=== PATIENT | female | born 1965 | race African-American/Black ===

== ENCOUNTER → 2020-01-12 | Outpatient (CLI) | payer OTHER ==
[~2020-01-12] VITALS: Ht 182.9 cm; Wt 103.4 kg
[~2020-01-12] MED LIST: CANASA1000 MG RECTAL; FOLIC ACID1 MG PO; LIPITOR80 MG PO; METFORMIN HCL500 M1 PO; MICARDIS 80 MG80 MG PO; NAPROSYN500 M1 PO; SPIRONOLACT/HCT1 TA1 PO; SULFAZINE500 MG PO; TOPROL XL50 MG PO
[2020-01-12 17:04] LABS: HEMATOCRIT 37.9 % (37.0-47.0); MCHC 34.2 g/dL (28.0-37.0); MCV 87.9 fL (80.0-100.0); MPV 10.2 fl. (7.2-11.1); RBC 4.31 mil/uL (4.20-5.00); RDW-CV 13.7 % (10.5-14.5); WBC 7.5 thou/uL (4.0-11.0)
[2020-01-12 17:11] LABS: INR 1.1; PROTIME 11.1 Seconds (9.20-11.50)
[2020-01-12 17:15] LABS: ALBUMIN 3.7 g/dL (3.4-5.0); CALCIUM 9.6 mg/dL (8.5-10.1); CREATININE 0.7 mg/dL (0.6-1.3); POTASSIUM 3.8 mmol/L (3.5-5.1); TOTAL BILIRUBIN 0.4 mg/dL (<0.1-1.0); TOTAL PROTEIN 8.6 g/dL (6.4-8.2)
[2020-01-12 18:13] LABS: URINE BILIRUBIN NEGATIVE (Negative); URINE BLOOD TRACE (Negative); URINE CLARITY CLEAR; URINE COLOR YELLOW; URINE GLUCOSE-RANDOM NEGATIVE (Negative); URINE KETONES NEGATIVE (Negative); URINE LEUKOCYTES-REFLEX TRACE (Negative); URINE NITRITE-REFLEX NEGATIVE (Negative); URINE PROTEIN NEGATIVE (Negative); URINE UROBILINOGEN 0.2 E.U./dl (0.2-1.0)
[2020-01-12 18:35] LABS: BACTERIA-REFLEX None Seen /HPF (None Seen); SQUAMOUS NONE SEEN /LPF (0-3); URINE RBC None Seen /HPF (0-2); URINE WBC-REFLEX None Seen /HPF (0-5)
[2020-01-12 18:36] LABS: CASTS None Seen /LPF (None Seen); CRYSTALS None Seen /LPF (None Seen)
--- NOTE | 2020-01-13 14:20 | EKG ---
[place] [address] ELECTROCARDIOGRAM REPORT Name: ANYI KENT Room: PRE IN [facility]#: [id number] Admission: Attend Phys: Tristan Fraser Discharge: Date of : 67 Date of Service: 01/12/201710 Report #: [id number] THIS REPORT FOR: //name// [facility] Test Date: 2020-01-12 Test Time: 17:11:34 Pat Name: ANYI KENT Department: Room: Gender: F Community Development Worker: VERNELL : 1965 Requested By: Josue Garza Order Number: [id number] Reading MD: James Lock Measurements Intervals [place] Rate: 70 P: 7 NM: 151 QRS: 42 QRSD: 97 T: 44 QT: 425 QTc: 459 Interpretive Statements Sinus rhythm Ventricular premature complex No previous ECG available for comparison Electronically Signed On 01-13-2020 14:19:32 CDT by James Lock [email or web address] <ELECTRONICALLY SIGNED> By: Alcides Lock MD, [facility] 01/13/20 1419 10 1711 Alcides Lock MD, FACC /EPI
== END ==
LOC: M.PRE → M.LAB 08:00 → M.PRE 01-23 09:11 → EDSTATUS 01-23 15:25 → M.PRE 01-23 17:36
PROVIDERS: Orthopaedic Surgery
DX: Z01.818 Encounter for other preprocedural examination (principal); M17.12 Unilateral primary osteoarthritis, left knee

== ENCOUNTER → 2020-01-12 | Outpatient (CLI) | payer OTHER | LOC: M.MRI 01-10 12:30 | DX: S83.282A Other tear of lateral meniscus, current injury, left knee, initial encounter (principal); S83.242A Other tear of medial meniscus, current injury, left knee, initial encounter; M17.12 Unilateral primary osteoarthritis, left knee; X58.XXXA Exposure to other specified factors, initial encounter; Y93.89 Activity, other specified; Y92.89 Other specified places as the place of occurrence of the external cause; Y99.8 Other external cause status ==

== ENCOUNTER 2020-04-16 06:45 | Inpatient (IN) | payer OTHER ==
[2020-04-11 08:13] LABS: URINE BILIRUBIN NEGATIVE (Negative); URINE BLOOD TRACE (Negative); URINE CLARITY CLEAR; URINE COLOR YELLOW; URINE GLUCOSE-RANDOM NEGATIVE (Negative); URINE KETONES NEGATIVE (Negative); URINE LEUKOCYTES-REFLEX NEGATIVE (Negative); URINE NITRITE-REFLEX NEGATIVE (Negative); URINE PROTEIN NEGATIVE (Negative); URINE SPECIFIC GRAVITY >= 1.030 (1.005-1.030); URINE UROBILINOGEN 0.2 E.U./dl (0.2-1.0)
[2020-04-11 08:17] LABS: INR 1.1; PROTIME 11.2 Seconds (9.20-11.50)
[2020-04-11 08:19] LABS: HEMATOCRIT 37.3 % (37.0-47.0); HEMOGLOBIN 12.6 gm/dL (12.0-15.0); MCH 30.2 pg (26.0-34.0); MCHC 33.7 g/dL (28.0-37.0); MCV 89.7 fL (80.0-100.0); MPV 9.7 fl. (7.2-11.1); RBC 4.16 mil/uL (4.20-5.00); RDW-CV 13.7 % (10.5-14.5); WBC 8.7 thou/uL (4.0-11.0)
[2020-04-11 08:21] LABS: ALBUMIN 3.5 g/dL (3.4-5.0); CALCIUM 8.8 mg/dL (8.5-10.1); POTASSIUM 3.3 mmol/L (3.5-5.1); TOTAL BILIRUBIN 0.3 mg/dL (<0.1-1.0); TOTAL PROTEIN 8.5 g/dL (6.4-8.2)
[~2020-04-16] VITALS: Ht 182.9 cm; Wt 103.4 kg
[2020-04-16] VITALS (7 sets, daily range): BP systolic 118–148; BP diastolic 54–83
[2020-04-16] MEDS ORDERED: PERCOCET 5-3251 EACH PO (15:33)
[2020-04-16] MEDS ORDERED: COLACE100 MG PO (15:33)
[2020-04-16] MEDS ORDERED: XARELTO10 MG PO (15:34)
[2020-04-16] MEDS ORDERED: ASPIRIN325 PO (15:48)
[2020-04-17 03:19] VITALS: BP 147/71
[2020-04-17 04:47] LABS: HEMATOCRIT 32.6 % (37.0-47.0); HEMOGLOBIN 11.1 gm/dL (12.0-15.0); MCH 30.5 pg (26.0-34.0); MCHC 33.9 g/dL (28.0-37.0); MCV 89.9 fL (80.0-100.0); RBC 3.63 mil/uL (4.20-5.00); RDW-CV 14.2 % (10.5-14.5); WBC 6.5 thou/uL (4.0-11.0)
[2020-04-17 05:20] LABS: CALCIUM 8.1 mg/dL (8.5-10.1); CREATININE 0.8 mg/dL (0.6-1.3); MAGNESIUM 1.7 mg/dL (1.8-2.4); POTASSIUM 3.5 mmol/L (3.5-5.1)
[2020-04-17 07:30] VITALS: BP 113/58
[2020-04-17] MEDS ORDERED: XARELTO10 MG PO (09:56)
[2020-04-17 12:02] VITALS: BP 117/59
--- NOTE | 2020-04-17 12:27 | OP ---
[address] [address] OPERATIVE REPORT Name: ANYI KENT Rajeev Room: [address] M.R.#: [id number] Admission: 04/16/20 Attend Phys: Cristela Erickson Discharge: Date of : 67 Report #: [id number] THIS REPORT FOR: //name// cc: PAT Bo family physician/PCP PAT - Betzy family physician/PCP ~ THIS REPORT FOR: //name// CC: PAT physician/PCP Josue Fraser DATE OF SERVICE: 04/16/2020 PREOPERATIVE DIAGNOSIS: Left knee osteoarthritis. POSTOPERATIVE DIAGNOSIS: Left knee osteoarthritis. PROCEDURE: Left total knee arthroplasty. SURGEON: Josue Garza II, DO HEAT TREAT PULLER: MITESH Solis ANESTHESIA: General endotracheal. ESTIMATED BLOOD LOSS: 50 mL. ANTIBIOTICS: Ancef preoperatively. DRAINS: Medium Hemovac. COMPLICATIONS: None. CONDITION OF THE PATIENT: Stable to recovery room. IMPLANTS: Listed in operative record and progress note. BRIEF HISTORY: The patient was seen in the preoperative area. Preoperative H and P was performed. Site was marked, questions were answered. Risks and benefits were discussed with the patient in detail about surgery. The patient wished to proceed, assuming all risks. DESCRIPTION OF PROCEDURE: The patient was taken to the operative suite and placed supine on the operative table, given appropriate anesthesia. A well-padded tourniquet applied to upper thigh, was inflated to 300 mmHg after gravity exsanguination. The operative knee was sterilely prepped and draped. [address] [address] OPERATIVE REPORT Name: ANYI KENT Rajeev Room: [address] M.R.#: [id number] Admission: 04/16/20 Attend Phys: Cristela Erickson Discharge: Date of : 67 Report #: [id number] Surgery began by midline incision. This was carried down to the subcutaneous tissues. A medial parapatellar arthrotomy was performed and carried down to bone. Patella was then everted and excess soft tissues were removed from around the femur. Femoral cutting block was then applied, checked with a drop scar for rotational alignment, pinned in appropriate position and appropriate cuts were made. A 4-in-1 cutting block was then applied, checked for rotational alignment, pinned in appropriate position and appropriate cuts were made. The tibia was exposed. Excess meniscus was removed. Retractor was placed on collateral ligaments. The tibial cutting block was then applied, pinned in appropriate position, checked with drop scar for rotational alignment and slope and appropriate cut was made. Tibial bone was removed. Tibial base plate was then applied, checked for rotational alignment with the drop scar and pinned in appropriate position. The femur was then applied and box cut was reamed. This was then trialed with appropriate spacer, which showed excellent fit and fill and excellent stability of the knee throughout all range of motion. The patella was reamed in appropriate fashion and sized to appropriate size. Three peg holes were drilled and it was then trialed and shown to have excellent flexion and extension, excellent tracking of the patella within the groove. These trials were removed. The tibia was punched in appropriate fashion. Bone ends were cleansed with Pulsavac irrigation and cement was mixed and applied to final implants. These were then malleted into position and held the knee in extension and compressed to allow cement to cure. After it cured, excess was removed using a Walker and osteotome. Wound was then copiously irrigated and the final spacer was then malleted into position. Tourniquet was deflated. Hemostasis was obtained with electrocautery. Pain cocktail was injected. PRP gel sprayed throughout the internal aspects of the knee. Medium Hemovac drain was applied. Capsule was closed with #2 FiberWire and #1 Vicryl in [id number] fashion. Skin was closed with 2-0 Vicryl and running 3-0 Monocryl. Dermabond and sterile dressing applied. Tommy wrap and PolarCare applied. The patient transported to recovery room in stable condition. Counts were correct throughout the procedure. <ELECTRONICALLY SIGNED> By: Josue Garza II, 04/17/20 1227 [id number] Garza II DO /nt
[2020-04-17 16:00] VITALS: BP 136/70
[2020-04-18 03:42] LABS: HEMATOCRIT 31.2 % (37.0-47.0); HEMOGLOBIN 10.5 gm/dL (12.0-15.0)
[2020-04-18 08:00] VITALS: BP 105/60
[2020-04-18 09:04] VITALS: BP 105/60
== END 2020-04-18 13:15 | disposition home health service (06) | DRG 470 ==
LOC: M.ORTHSURG 06:45 → M.TBA 06:45 → M.PRE 06:48 → M.ORTHSURG 12:14
PROVIDERS: Internal Medicine; Orthopaedic Surgery; ADMIT Internal Medicine; ATTEND Internal Medicine
PROC: 0SRD069 Replacement of Left Knee Joint with Oxidized Zirconium on Polyethylene Synthetic Substitute, Cemented, Open Approach (ICD-10-PCS; principal; 2020-04-16)
DX: M17.12 Unilateral primary osteoarthritis, left knee (principal); I10 Essential (primary) hypertension; E11.9 Type 2 diabetes mellitus without complications; Z20.828 Contact with and (suspected) exposure to other viral communicable diseases; E78.00 Pure hypercholesterolemia, unspecified; Z90.711 Acquired absence of uterus with remaining cervical stump; Z79.82 Long term (current) use of aspirin; Z79.899 Other long term (current) drug therapy